=== PATIENT | female | born 1990 | race Two or more races ===

== ENCOUNTER → 2016-10-10 | Outpatient (CLI) | payer OTHER ==
--- NOTE | 2016-10-10 16:39 | KCIC ---
TIBIA FIBULA LEFT History: Left lower leg pain and swelling for 6 months after fall Comparison: None. Findings: 2 views of the left tibia-fibula are submitted. No acute fracture or dislocation is identified. No aggressive bone destruction is identified. Impression: 1. No significant osseous abnormality is identified by radiographs. Electronically signed by: Jaun Newby MD (10/10/2016 4:35 PM)
== END | disposition home or self-care (01) ==
LOC: KCIC 16:08
PROVIDERS: ATTEND Family Medicine
DX: M79.89 Other specified soft tissue disorders (principal); M79.662 Pain in left lower leg
CPT/HCPCS: 73590